=== PATIENT | male | born 1955 | race Caucasian/White ===

== ENCOUNTER 2020-01-09 17:46 | Outpatient (REF) | payer BC, SELFPAY ==
[2020-01-09 22:05] LABS: Abs Immature Grans 0.01 10^3/uL (0.0-0.06); Absolute Basophil Count 0.07 10^3/uL (0.0-0.2); Absolute Eosinophil Count 0.33 10^3/uL (0.0-0.7); Absolute Lymphocyte Count 1.61 10^3/uL (1.2-3.4); Absolute Monocyte Count 0.54 10^3/uL (0.1-0.8); Absolute Neutrophil Count 4.38 10^3/uL (1.2-6.7); Eosinophils % 4.8; HCT 46.4 % (40.0-50.0); HGB 15.4 g/dL (13.5-17.5); Immature Grans % 0.1; Lymphocytes % 23.2; MCH 28.8 pg (27.0-33.0); MCHC 33.2 % (32.0-36.0); MCV 86.7 fL (80-95); MPV 11.6 fL (8.0-11.0); Monocytes % 7.8; Neutrophils % 63.1; Nucleated RBC 0 %; Platelet Count 217 10^3/uL (130-400); RBC 5.35 10^6/uL (4.36-5.78); RDW 13.1 % (11.8-14.1); RDW-SD 41.4 fL; WBC 6.94 10^3/uL (4.4-10.8)
[2020-01-09 22:33] LABS: ALT 32 U/L (16-63); AST 24 U/L (15-37); Albumin 3.7 g/dL (3.4-5.0); Alkaline Phosphatase 76 U/L (46-116); Anion Gap 11.6 mmol/L (3-11); BUN 20 mg/dL (7-18); Bilirubin, Total 0.3 mg/dL (0.2-1.0); CO2 24.4 mmol/L (21.0-32.0); CREATININE 1.02 mg/dL (0.70-1.30); Calcium 8.7 mg/dL (8.5-10.1); Chloride 105 mmol/L (98-107); Glucose 115 mg/dL (74-106); Sodium 141 mmol/L (136-145); TSH 0.87 uIU/mL (0.36-3.74); Total Protein 6.9 g/dL (6.4-8.2)
== END 2020-01-09 18:06 ==
LOC: NCHCN 17:46
PROVIDERS: PCP Internal Medicine; Visit Provider Internal Medicine
DX: R42 Dizziness and giddiness (principal)
CPT/HCPCS: 80053; 84443; 85025

== ENCOUNTER 2021-08-07 10:36 | Outpatient (REF) | payer BC, SELFPAY ==
--- NOTE | 2021-08-07 13:55 | SKI_PTH ---
PATIENT: Shaggy Chi LOC: [facility] U#:[id number] AGE/SX: 66/M ROOM: RE08/07/[address]: Jackie Coreas : 1955 BED: DIS: 08/07/2021 SPEC #: [id number] RECD: 08/11/21 11:24 STATUS: MIKAYLA REQ #: [id number] CHEIKH: 08/07/21 13:[address]: Jackie Coreas DEPT: Surgical Specimen RECD BY: Radha Davidson ENTERED: 08/11/21 11:26 SP TYPE: SKI OTHR DR: Clive Levine Tissues: 1 - SKIN BIOPSY(SHAVE/PUNCH) Procedures: SKIN LEVEL 4 Comments: [id number]
== END 2021-08-07 10:37 | disposition home or self-care (01) ==
LOC: LBN 10:36
PROVIDERS: PCP Internal Medicine; Visit Provider Nurse Practitioner Family
DX: D22.5 Melanocytic nevi of trunk (principal)
CPT/HCPCS: 88305

== ENCOUNTER 2022-05-12 16:18 | Outpatient (REF) | payer BC, SELFPAY ==
[2022-05-12 15:23] LABS: Calculated LDL 149 mg/dL (<100); Cholesterol 200 mg/dL (<200); Glucose 100 mg/dL (74-106); HDL Cholesterol 42 mg/dL (40-60); Triglyceride 47 mg/dL (<150)
--- OUTSIDE RECORDS SUMMARY | 2022-05-12 16:23 | XMS_ITS | Continuity of Care Document ---
Author Name Unknown Organization [facility] Address [address] [place] [address] Care Team Providers Care Telephone Information Supervisor Name Role Phone Funmi Calderon Primary Care Physician Encounter [facility] Date(s): 03/21/22 - 03/21/22 [facility] [address] [place] [address] Discharge Disposition: Home or Self Care Attending Physician: Eitan Marx MD Admitting Physician: Eitan Marx MD Allergies, Adverse Reactions, Alerts No Known Allergies Immunizations Given and Recorded Vaccine Date Status Refusal Reason SARS-CoV-2 (COVID-19) mRNA-1273 vaccine 06/12/20 R ecorded SARS-CoV-2 (COVID-19) mRNA-1273 vaccine 05/15/20 R ecorded Vital Signs Most recent to oldest [Reference Range]: 1 Temperature Temporal Artery [36-38 Deg C ] 35.7 Deg C *LOW* (03/21/22 2:48 PM) Peripheral Pulse Rate [60-100 bpm] 67 bp m (03/21/22 2:48 PM) Respiratory Rate [12-24 br/min] 16 br/mi n (03/21/22 2:48 PM) Weight Dosing 77.11 kg (03/21/22 2:55 PM) Weight Estimated 77.11 kg (03/21/22 2:48 PM) Height/Length Dosing 170.180 cm (03/21/22 2:55 PM) Height/Length Estimated 170.180 cm (03/21/22 2:48 PM) Social History Social History Type Response Tobacco Never tobacco user T obacco Use:. Sex Male Physician Emergency department Note * Eitan Marx MD: PERFORM Event Display: ED Note Physician Authored Date: [id number] SHAGGY MOCK :1955 Age:67 years Sex:Male Visit Date:03/21/2022 Primary Care Physician: Funmi Calderon MD Name:??Shaggy Mock CC:??Wrist injury HPI:??Fell this morning with injury to the left wrist. ROS: No other acute injuries Exam: Tender over ulnar styloid. ??Limited range of motion X-rays interpreted by me: No acute fractures X-rays interpreted by radiology: As above Disposition:??Discharge home Diagnosis(es): Wrist sprain Patient Instructions:??Wear splint for minimum of 2 days. ??Apply ice is much as possible for the next 2 days. ??May take Tylenol 1000 mg up to 4 times per day and/or ibuprofen 600 mg with food up to4 times per day. ??After 2 days gradually resume normal use. Eitan Marx MD Medical Decision Making: ?Problem Complexity: 78824 ?Data Complexity: 76769 ?Risk of Management: 68663 ?Codin Electronically Signed on 03/21/22 04:32 PM Eitan Marx MD Emergency department Discharge instructions * Eitan Marx MD: PERFORM Event Display: ED Discharge Information Authored Date: [id number] SHAGGY MOCK :1955 Age:67 years Sex:Male Visit Date:03/21/2022 Primary Care Physician: Funmi Calderon MD Discharge Instructions We would like to thank you for allowing us to assist you with your healthcare needs. The following includes patient education materials and information regarding your injury/illness. Discharge Vitals Temperature??(Temporal Artery) 96.3 ??F (35.7 ??C) Heart Rate??(Peripheral) 67 Respiratory Rate?? 16 Height?? 67.00 in (170.180 cm) Weight??(Estimated) 170.03 lb (77.11 kg) Allergies No Known Allergies What to Do Next Instructions from Your Care Team ?? Diagnosis(es): Wrist sprain Patient Instructions:??Wear splint for minimum of 2 days. ??Apply ice is much as possible for the next 2 days. ??May take Tylenol 1000 mg up to 4 times per day and/or ibuprofen 600 mg with food up to4 times per day. ??After 2 days gradually resume normal use. Eitan Marx MD ?? You were treated today on an emergency basis; it may be tian to contact your primary care provider to notify them of your visit today. You may have been referred to your regular doctor or a specialist, please follow up as instructed. If your condition worsens or you can't get in to see the doctor, contact the Emergency Department. Patient/Nuts And Bolts Assembler Signature Patient Name:SHAGGY MOCK I have received this information and my questions have been answered. Patient/Nuts And Bolts Assembler Name: Patient/Nuts And Bolts Assembler Signature: Relationship to Patient: Witness Name/Signature: Date: Electronically Signed on: 03/21/2022 16:33 ESTSigned by:[facility] Emergency department Note * Delicai Lynch: PERFORM Event Display: ED Notes Authored Date: [id number] Patient Care team information Care Team Personnel Name: Funmi Calderon MD Position: No Access Member Role: Primary Care Physician Address: Address: [address] [id number] Name: Aakash Diaz RN Position: Nurse Member Role: ED Nurse Name: Eitan Marx MD Position: Physician Member Role: ED Physician Address: Address: [address] [place] [id number] Care Team Related Persons Name: GREG ADDISON Address: Home [address] [place], [phone]
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
== END 2022-05-12 16:19 | disposition home or self-care (01) ==
LOC: NCHCN 16:18
PROVIDERS: PCP Internal Medicine; Visit Provider Internal Medicine
DX: Z00.00 Encounter for general adult medical examination without abnormal findings (principal); Z13.1 Encounter for screening for diabetes mellitus; E78.5 Hyperlipidemia, unspecified
CPT/HCPCS: 80061; 82947

== ENCOUNTER 2023-05-08 10:30 | Outpatient (REF) | payer MEDICARE, SELFPAY ==
[2023-05-09 09:59] LABS: PSA, Diagnostic 1.1 ng/mL (<=4.5)
== END 2023-05-08 10:31 | disposition home or self-care (01) ==
LOC: NCHCN 10:30
PROVIDERS: PCP Internal Medicine; Visit Provider Internal Medicine
DX: Z00.00 Encounter for general adult medical examination without abnormal findings (principal)
CPT/HCPCS: 84153